=== PATIENT | male | born 1985 | race American Indian/Alaskan Native ===

== ENCOUNTER 2017-11-25 15:49 | Emergency (ER) | payer MEDICAID ==
[2017-11-25 16:12] VITALS: BP 100/66
--- NOTE | 2017-11-25 19:22 | Emergency Department Report ---
Suture/Staple Removal - [facility] Chief Complaint: Laceration/Recheck/Suture Stated Complaint: ARYAN REMOVED Time Seen by Provider: 11/25/17 19:16 When Sutures or [place] Placed: >14 Days Ago Wound Location: anterior midline scalp ED Review of Systems ROS: Stated complaint: ARYAN REMOVED Other details as noted in HPI ED Past Medical Hx - Past Medical History Previous Medical History?: Yes Additional medical history: hearing impaired. nonverbal. dislocation of chromosomes - Surgical History Past Surgical History?: No - Social History Smoking Status: Never Smoker Substance Use Type: None Suture Removal Exam - Exam General: Vital signs noted. No distress. Alert and acting appropriately. Wound: No Pathologic Erythema, No Tenderness, No Drainage, No Pus, No Wound Dehiscence Other Systems: All other systems reviewed and are unremarkable. ED Course Vital Signs 11/25/17 16:09 Temperature 98.3 F Pulse Rate 105 H Respiratory 18 Rate Blood Pressure 100/66 O2 Sat by Pulse 98 Oximetry - Procedure Description Procedures done: Staple removal. Anterior midline scalp, 3 aryan removed site is not erythematous and edematous no discharge. Critical care attestation.: If time is entered above; I have spent that time in minutes in the direct care of this critically ill patient, excluding procedure time. ED Disposition Clinical Impression: Encounter for staple removal Disposition: DC-01 TO HOME OR SELFCARE Is pt being admited?: No Does the pt Need Aspirin: No Condition: Stable Instructions: Staple Care (ED) Additional Instructions: Keep area clean and dry. Referrals: PRIMARY CARE, [Primary Care Provider] - 3-5 Days Forms: Accompanied Note
== END 2017-11-25 19:25 | disposition home or self-care (01) ==
LOC: ED 15:49
DX: S01.01XD Laceration without foreign body of scalp, subsequent encounter (principal); H91.8X9 Other specified hearing loss, unspecified ear; X58.XXXD Exposure to other specified factors, subsequent encounter